=== PATIENT | female | born 1995 ===

== ENCOUNTER 2018-04-21 09:38 | Emergency (ER) | payer MEDICAID ==
[2018-04-21 10:17] VITALS: BMI 44.8
[2018-04-21 10:22] VITALS: RESP 18; TEMP 98.6
[2018-04-21] MEDS ORDERED: Sodium Chloride 0.9% 1,000 ML IV STA (10:30)
[2018-04-21 10:58] LABS: BASO # 0.01 K/mm3 (0.0-2.0); BASO % 0.1 % (0.0-3.0); EOS # 0.3 (0.0-0.7); EOS % 3.1 % (1.5-5.0); GRAN # 7.48 (1.4-6.5); GRAN % 69.5 % (50.0-68.0); LYMPH # 2.2 (1.2-3.4); LYMPH % 20.2 % (22.0-35.0); MEAN CELL VOLUME 87.8 fl (80.0-105.0); MEAN CORPUSCULAR HEMOGLOBIN 29.3 pg (25.0-35.0); MEAN CORPUSCULAR HGB CONC 33.4 g/dl (31.0-37.0); MONO # 0.8 (0.1-0.6); MONO % 7.1 % (1.0-6.0); RBC 4.43 10^6/uL (3.5-6.1); RED CELL DISTRIBUTION WIDTH 13.1 % (11.5-14.5); WHITE BLOOD COUNT 10.8 10^3/uL (4.5-11.0)
[2018-04-21 11:10] LABS: INR 1.19; PARTIAL THROMBOPLASTIN TIME 32.1 Seconds (25.1-36.5); PROTHROMBIN TIME 13.7 SECONDS (9.4-12.5)
--- NOTE | 2018-04-21 11:11 | US ---
Date of service: 04/21/2018 HISTORY: RUQ pain COMPARISON: None. TECHNIQUE: Sonographic evaluation of the right upper quadrant of the abdomen. FINDINGS: LIVER: Measures 18.1 cm in length. Hepatopedal blood flow. Fatty infiltration manifest ultrasonographically as increased echogenicity of the liver parenchyma. No mass. No intrahepatic bile duct dilatation. GALLBLADDER: Unremarkable. No gallstones. COMMON BILE DUCT: Measures 4.6 mm. No stones. No dilatation. PANCREAS: Unremarkable as visualized. No mass. No ductal dilatation. RIGHT KIDNEY: Measures 5.4 x 12.1 cm in length. Normal echogenicity. No calculus, mass, or hydronephrosis. AORTA: No aneurysmal dilatation. IVC: Unremarkable. OTHER FINDINGS: None . IMPRESSION: No acute findings related to/ accounting for the clinical presentation. Hepatic steatosis, mild hepatomegaly.
[2018-04-21 11:16] LABS: ALB/GLOB RATIO 1.3 (1.1-1.8); ALBUMIN 4.3 g/dL (3.0-4.8); ALT/SGPT 34 U/L (7-56); AST/SGOT 27 U/L (14-36); BLOOD UREA NITROGEN 7 mg/dL (7-21); CALCIUM 9.8 mg/dL (8.4-10.5); GFR NON-AFRICAN AMERICAN > 60; LIPASE 18 U/L (23-300)
--- NOTE | 2018-04-21 12:00 | ED PDOC ---
Arrival/HPI - General Chief Complaint: GI Problem Time Seen by Provider: 04/21/18 10:11 Historian: Patient - History of Present Illness Narrative History of Present Illness (Text): 04/21/18 11:57 23yo morbidly obese female with no past medical history who present with complaint of nausea, vomiting, diarrhea, sore throat x 2days. She also reports intermittent RUQ abdominal discomfort. +Odynophagia. Denies dysphagia, drooling, hoarseness, fever,chills, melena, hematemesis, urinary symptoms, sick contact, travel, any other complaint. Past Medical History - Provider Review Nursing Documentation Reviewed: Yes - Infectious Disease Hx of Infectious Diseases: None - Psychiatric Hx Substance Use: No - Surgical History Other/Comment: ovarian cyst - Anesthesia Hx Anesthesia: Yes Hx Anesthesia Reactions: No Hx Malignant Hyperthermia: No Family/Social History - Physician Review Nursing Documentation Reviewed: Yes Family/Social History: Unknown Family HX Smoking Status: Never Smoked Hx Alcohol Use: No Hx Substance Use: No Allergies/Home Meds Allergies/Adverse Reactions: Allergies No Known Allergies Allergy (Verified 04/21/18 10:17) Review of Systems - Physician Review All systems were reviewed & negative as marked: Yes - Review of Systems Constitutional: Normal Eyes: Normal ENT: Sore Throat Respiratory: Normal Cardiovascular: Normal Gastrointestinal: Abdominal Pain, Diarrhea, Nausea, Vomiting. absent: Constipation, Hematemesis Genitourinary Female: Normal Musculoskeletal: Normal Skin: Normal Neurological: Normal Endocrine: Normal Hemo/Lymphatic: Normal Psychiatric: Normal Physical Exam Vital Signs Reviewed: Yes Vital Signs Temp Pulse Resp BP Pulse Ox 04/21/18 10:21 98.6 F 96 H 18 125/71 97 Temperature: Afebrile Blood Pressure: Normal Pulse: Regular Respiratory Rate: Normal Appearance: Positive for: Well-Appearing, Non-Toxic, Comfortable Pain Distress: None Mental Status: Positive for: Alert and Oriented X 3 - Systems Exam Head: Present: Atraumatic, Normocephalic Pupils: Present: PERRL Extroacular Muscles: Present: EOMI Conjunctiva: Present: Normal Mouth: Present: Moist Mucous Membranes Pharnyx: Present: ERYTHEMA, TONSILS ENLARGED, Peritonsilar Swelling. No: EXUDATE, Uvular Deviation, Muffled/Hoarse Voice, Strider, Soft Palate/Uvular Edema Neck: Present: Normal Range of Motion Respiratory/Chest: Present: Clear to Auscultation, Good Air Exchange. No: Respiratory Distress, Accessory Muscle Use Cardiovascular: Present: Regular Rate and Rhythm, Normal S1, S2. No: Murmurs Abdomen: Present: Normal Bowel Sounds, Other (Soft). No: Tenderness, Distention, Peritoneal Signs, Rebound, Guarding, McBurney's Point Tender, Rovsing's Sign Present Back: Present: Normal Inspection Upper Extremity: Present: Normal Inspection. No: Cyanosis, Edema Lower Extremity: Present: Normal Inspection. No: Edema Neurological: Present: GCS=15, CN II-XII Intact, Speech Normal Skin: Present: Warm, Dry, Normal Color. No: Rashes Psychiatric: Present: Alert, Oriented x 3, Normal Insight, Normal Concentration Medical Decision Making ED Course and Treatment: 04/21/18 20:38 PT present to emergency department for stated history. Lab Gallbladder US 1L NS, Zofran, Pepcid Per the RN pt declined all medication and fluid she was noted to tolerate PO challenge in emergency department Her lab was unremarkable in emergency department Gallbladder US IMPRESSION: No acute findings related to/ accounting for the clinical presentation. Hepatic steatosis, mild hepatomegaly. She was treated with penicillin and decadron for strep and DC home with penicillin. Referred to her PMD - Lab Interpretations Lab Results: PT 13.7 SECONDS (9.4-12.5) H 04/21/18 10:40 INR 1.19 04/21/18 10:40 APTT 32.1 Seconds (25.1-36.5) 04/21/18 10:40 Total Bilirubin 0.5 mg/dL (0.2-1.3) 04/21/18 10:40 AST 27 U/L (14-36) 04/21/18 10:40 ALT 34 U/L (7-56) 04/21/18 10:40 Alkaline Phosphatase 87 U/L (38-126) 04/21/18 10:40 Total Protein 7.7 g/dL (5.8-8.3) 04/21/18 10:40 Albumin 4.3 g/dL (3.0-4.8) 04/21/18 10:40 Globulin 3.4 gm/dL 04/21/18 10:40 Albumin/Globulin Ratio 1.3 (1.1-1.8) 04/21/18 10:40 Lipase 18 U/L (23-300) L 04/21/18 10:40 - RAD Interpretation Radiology Orders: 04/21/18 10:31 GALLBLADDER & RENAL [US] Stat - Medication Orders Current Medication Orders: Discontinued Medications Famotidine (Pepcid) 20 mg IVP STAT STA Stop: 04/21/18 10:31 Last Admin: 04/21/18 11:49 Dose: Not Given Non-Admin Reason: pt refused Sodium Chloride (Sodium Chloride 0.9%) 1,000 mls @ 1,000 mls/hr IV .Q1H STA Stop: 04/21/18 11:29 Last Admin: 04/21/18 11:50 Dose: Not Given Non-Admin Reason: pt refusde Ketorolac Tromethamine (Toradol) 30 mg IVP STAT STA Stop: 04/21/18 10:31 Last Admin: 04/21/18 11:50 Dose: Not Given Non-Admin Reason: Patient Refused Ondansetron HCl (Zofran Inj) 4 mg IVP STAT STA Stop: 04/21/18 10:31 Last Admin: 04/21/18 11:50 Dose: Not Given Non-Admin Reason: Patient Refused Disposition/Present on Arrival - Present on Arrival Any Indicators Present on Arrival: No History of DVT/PE: No History of Uncontrolled Diabetes: No Urinary Catheter: No History of Decub. Ulcer: No History Surgical Site Infection Following: None - Disposition Have Diagnosis and Disposition been Completed?: Yes Diagnosis: Abdominal pain, Vomiting and diarrhea, Pharyngitis Disposition: HOME/ ROUTINE Disposition Time: 12:30 Patient Plan: Discharge Condition: STABLE Discharge Instructions (ExitCare): Sore Throat in Adults, Acute Abdomen (Belly Pain), Adult (DC), Nausea and Vomiting, Adult Additional Instructions: Follow BLAND diet for 24hours Follow up with your Doctor and drink plenty of fluid Return to emergency department for any new or worsening symptoms Prescriptions: Ondansetron ODT [Zofran ODT] 4 mg PO Q6 #6 odt Penicillin VK [Penicillin VK Tab] 500 mg PO BID #14 tab Referrals: Phuong Nielsen MD [Medical Doctor] - Follow up with primary Forms: [employer] ([place]), WORK NOTE
[2018-04-21 16:52] VITALS: BP 124/75; PULSE 93; O2SAT 98
== END 2018-04-21 13:00 | disposition home or self-care (01) ==
LOC: MERGE 09:38 → ED 09:38
DX: R19.7 Diarrhea, unspecified (principal); R11.2 Nausea with vomiting, unspecified; J02.9 Acute pharyngitis, unspecified; R10.11 Right upper quadrant pain; E66.01 Morbid (severe) obesity due to excess calories
CPT/HCPCS: 76705; 76770; 80053; 81025; 83690; 83735; 85025; 85610; 85730; 96372; 99284; J1100